=== PATIENT | male | born 1965 | race Caucasian/White ===

== ENCOUNTER 2018-06-18 13:27 | Inpatient (IN) | payer OTHER ==
[~2018-06-18] VITALS: Ht 175.3 cm; Wt 120.2 kg
[2018-06-18 13:30] VITALS: BP 190/113
[2018-06-18] MEDS ORDERED: LISINOPRIL10 MG PO ×2 (13:41→18:31)
[2018-06-18] MEDS ORDERED: ASPIR 8181 MG PO (13:41)
[2018-06-18 13:54] LABS: ABSOLUTE NEUTROPHILS 5.6 thou/uL (1.4-8.2); BASOPHILS 0.6 % (0.0-2.0); EOSINOPHILS 1.3 % (0.0-3.0); HEMATOCRIT 44.2 % (42.0-52.0); HEMOGLOBIN 15.8 gm/dL (14.0-18.0); LYMPHOCYTES 23.1 % (24.0-44.0); MCH 32.6 pg (26.0-34.0); MCHC 35.8 g/dL (28.0-37.0); MCV 91.1 fL (80.0-100.0); MONOCYTES 9.3 % (1.0-8.0); PLATELET COUNT 243 thou/uL (150-400); POLYS 65.7 % (36.0-66.0); RBC 4.86 mil/uL (4.50-6.00); RDW 13.5 % (10.5-14.5); WBC 8.5 thou/uL (4.0-11.0)
[2018-06-18 13:58] LABS: ANION GAP 10 mmol/L (7-16); BUN 13 mg/dL (7-18); CALCIUM 9.3 mg/dL (8.5-10.1); CHLORIDE 100 mmol/L (98-107); CO2 29 mmol/L (21-32); CREATININE 1.3 mg/dL (0.7-1.3); GLUCOSE 145 mg/dL (74-106); POTASSIUM 3.5 mmol/L (3.5-5.1); SODIUM 139 mmol/L (136-145)
[2018-06-18 14:04] LABS: PROTIME 10.2 Seconds (9.3-11.4)
[2018-06-18 14:06] LABS: ALBUMIN 3.9 g/dL (3.4-5.0); SGOT 25 U/L (15-37); SGPT 41 U/L (30-65); TOTAL PROTEIN 7.3 g/dL (6.4-8.2); TROPONIN-I <0.06 ng/mL (<0.06)
[2018-06-18] MEDS ORDERED: NORCO 5-325 TA1 EACH PO (16:20)
[2018-06-18 17:26] VITALS: BP 178/91
[2018-06-18 18:02] VITALS: BP 173/81
[2018-06-18 18:12] VITALS: BP 174/113
[2018-06-18] MEDS ORDERED: FLEXERIL PO (18:30)
[2018-06-18] MEDS ORDERED: VERAPAMIL E.R240 M1 PO (18:31)
[2018-06-18] MEDS ORDERED: ALEVE220 MG PO (18:32)
[2018-06-18] MEDS ORDERED: NEURONTIN600 MG PO (18:32)
[2018-06-18] MEDS ORDERED: HYDROCHLOROTHIA25 M2 PO (18:33)
[2018-06-18] MEDS ORDERED: ASPIR 8181 M1 PO (18:33)
--- NOTE | 2018-06-18 18:58 | NUR ---
ADMITTED PATIEN TO ROOM. ALERT ORIENTED X4. DID REQUEST PAIN MEDICATION AND PRN PAIN MED ADMINISTERED. IT WAS EFFECTIVE. HE WAS ORIENTED TO ROOM ALONG WITH NURSE CALL BUTTON.
[2018-06-18 20:45] VITALS: BP 117/113; BP 170/113
[2018-06-18 23:15] VITALS: BP 154/100
[2018-06-19 03:55] VITALS: BP 171/110
--- NOTE | 2018-06-19 04:00 | NUR ---
PT ARRIVED THROUGH ER FOR HYPERTENSIVE CRISIS. GAVE PT PRN HYDRALIZINE TO LOWER BP. PT STATES HE DOES NOT LIKE THE FEELINBG HYDRALIZINE MAKES HIM FEEL. RESTARTED PT'S HOME MEDICATION FOR LISINOPRIL, FLEXERIL, AND VERAPAMIL AND GAVE ONE TIME DOSES TO HELP BRING BP DOWN. PRN PAIN MEDICATION GIVEN 2X OVER THE SHIFT. PT REFUSES TO WEAR HOSPITAL GOWN. HOURLY ROUNDING.
[2018-06-19 06:38] LABS: HEMATOCRIT 46.2 % (42.0-52.0); HEMOGLOBIN 16.1 gm/dL (14.0-18.0); MCH 32.2 pg (26.0-34.0); MCHC 34.8 g/dL (28.0-37.0); MCV 92.6 fL (80.0-100.0); RBC 4.99 mil/uL (4.50-6.00); RDW 13.5 % (10.5-14.5); WBC 8.9 thou/uL (4.0-11.0)
[2018-06-19 06:53] LABS: CALCIUM 9.1 mg/dL (8.5-10.1); CREATININE 1.1 mg/dL (0.7-1.3); POTASSIUM 3.5 mmol/L (3.5-5.1)
[2018-06-19 07:13] VITALS: BP 141/78
[2018-06-19 11:33] VITALS: BP 150/93
[2018-06-19] MEDS ORDERED: NORVASC10 MG PO (11:45)
[2018-06-19 11:54] VITALS: BP 150/93
--- NOTE | 2018-06-19 12:32 | NUR ---
PATIENT WILL BE DISCHARGED THIS AM. HE IS ALERT ORIENTED X4. HE WAS EDUCATED ON NEED TO TAKE HIS BP MEDICATIONS ON TIME AND DAILY TO PREVENT HIGH BPS. HE STATES HIS BP STAY NORMAL WHEN HIS PAIN IS UNDER CONTROL.
--- NOTE | 2018-06-19 19:48 | EKG ---
[place] [address] [facility] [place] [address] ELECTROCARDIOGRAM REPORT Name: CYNTHIA SEVERINO Room #: 357-P [facility] M.R.#: [id number] ������������������ Admission: 06/18/18 ������������������ Attend Phys: Jude Tompkins MD Discharge: 06/19/18 ������������������ Date of : 61 Report #: [id number] ����������������������������������������������������������������� [id number] THIS REPORT FOR: //name// [facility] ED Test Date: 2018-06-18 Test Time: 13:31:44 Pat Name: CYNTHIA SEVERINO Department: Room: 357 Gender: M [employer]: [place] : 1965 Requested By: Kendra Ramirez Order Number: [id number] MD: Cruz Liriano Measurements Intervals [employer] Rate: 85 P: 40 OK: 156 QRS: 3 QRSD: 113 T: 43 QT: 385 QTc: 458 Interpretive Statements Sinus rhythm Incomplete right bundle branch block Voltage criteria for LVH Nonspecific ST-T wave changes No previous ECG available for comparison Electronically Signed On 06-19-2018 19:48:36 [employer] by Cruz Liriano [email or web address] ��������������������������������������������� <ELECTRONICALLY SIGNED> ���������������������������������������� By: Cruz Liriano MD ��������������������������������������������� 06/19/188 30 30 Cruz Liriano MD /EPI
[2018-06-20 09:13] LABS: POC BUN 12 mg/dL (7-18); POC CA IONIZED 4.6 mg/dL (4.5-5.3); POC CHLORIDE 99 mmol/L (98-107); POC GLUCOSE 93 mg/dL (70-99); POC HEMOGLOBIN 13.6 g/dL (14.0-18.0); POC POTASSIUM 3.3 mmol/L (3.5-5.1); POC SODIUM 139 mmol/L (136-145)
== END 2018-06-19 12:54 | disposition home or self-care (01) | DRG 305 ==
LOC: ER 13:27 → EROBS 16:14 → 3W 18:02
PROVIDERS: Nurse Practitioner Family; ADMIT Hospitalist
DX: I16.0 Hypertensive urgency (principal); I10 Essential (primary) hypertension; E78.5 Hyperlipidemia, unspecified; H81.90 Unspecified disorder of vestibular function, unspecified ear; Z87.891 Personal history of nicotine dependence; Z86.73 Personal history of transient ischemic attack (TIA), and cerebral infarction without residual deficits; Z79.82 Long term (current) use of aspirin; Z79.899 Other long term (current) drug therapy; Z88.0 Allergy status to penicillin; Z82.49 Family history of ischemic heart disease and other diseases of the circulatory system
CPT/HCPCS: 10879